=== PATIENT | male | born 1980 | race Hispanic/Latino ===

== ENCOUNTER → 2019-08-04 | Day surgery (SDC) | payer OTHER ==
[~2019-08-04] MED LIST: FENTANYL CITRATE/PF 100MCG/2 ML INJ ONE; HYOSCYAMINE 0.125 MG TAB ONE; LIALDA1.2 GM PO; LIDOCAINE HCL 2% LOCAL INJ 5 ML SDV VIAL INJ ONE; MIDAZOLAM HCL 2 MG/2 ML VIAL ONE; PROPOFOL IV EMULSION 10 MG/ML 50 ML VIAL ONE
[2019-08-04 12:41] VITALS: BP 110/83
--- NOTE | 2019-08-04 15:30 | Operative Report ---
DATE OF PROCEDURE: 08/04/2019 SURGEON: Butch Hernandez MD PROCEDURE: Colonoscopy with biopsies. INDICATIONS FOR PROCEDURE: History of ulcerative colitis. MEDICATIONS: The patient was done under MAC, please see anesthesiologist's note. PROCEDURE IN DETAIL: With the patient in left lateral decubitus position, the flexible fiberoptic Olympus colonoscope was inserted into the rectum with ease and advanced all the way to the cecum. Mucosa overlying the cecum revealed some patchy areas of erythema and low-grade edema and biopsies were obtained. The ileocecal valve was intubated and the scope was advanced into the terminal ileum. The mucosa was excessively nodular and biopsies were obtained. The scope was then withdrawn back into the colon. It was then withdrawn slowly and mucosa overlying the ascending, transverse, and descending appeared to be within normal limits. There were some mild patchy inflammatory changes noted in the mid to distal sigmoid and some scattered ulcerations in the distal sigmoid and proximal rectum. Biopsies were obtained. The scope was then retroflexed into the distal rectum and small internal hemorrhoids were noted, none of which was actively bleeding. The scope was then straightened out, it was subsequently withdrawn, and the patient tolerated the procedure well. IMPRESSION: 1. Proctosigmoiditis. 2. Internal hemorrhoids, none actively bleeding. PLAN: Follow up histology. Increase Lialda to 4.8 g p.o. daily. Butch Hernandez MD [facility] [place] /[id number] cc: Suze Navarro MD
== END | disposition home or self-care (01) ==
LOC: OR 09:25
PROVIDERS: ATTEND Internal Medicine Gastroenterology
DX: K52.9 Noninfective gastroenteritis and colitis, unspecified (principal); K63.89 Other specified diseases of intestine; K64.8 Other hemorrhoids; Z71.3 Dietary counseling and surveillance; R03.0 Elevated blood-pressure reading, without diagnosis of hypertension; F41.9 Anxiety disorder, unspecified; Z79.82 Long term (current) use of aspirin; Z68.26 Body mass index [BMI] 26.0-26.9, adult
CPT/HCPCS: 36415; 45380; 85651; 86140; 86256; 86671; J2001; J2250; J2704; J3010; 45378